=== PATIENT | female | born 1960 | race Caucasian/White ===

== ENCOUNTER 2023-05-02 06:37 | Outpatient (RCR) | payer BC, SELFPAY | END 2023-05-02 23:59 | disposition home or self-care (01) | LOC: RPT 06:37 | PROVIDERS: ATTENDING PHYSICIAN Orthopaedic Surgery Orthopaedic Trauma; PRIMARYCARE PHYSICIAN Family Medicine | DX: M89.8X1 Other specified disorders of bone, shoulder (principal) | CPT/HCPCS: 97110; 97140 ==

== ENCOUNTER 2023-05-30 15:01 | Outpatient (RCR) | payer BC, SELFPAY | END 2023-05-30 23:59 | disposition home or self-care (01) | LOC: RPT 15:01 | PROVIDERS: ATTENDING PHYSICIAN Orthopaedic Surgery Orthopaedic Trauma; PRIMARYCARE PHYSICIAN Family Medicine | DX: Z47.89 Encounter for other orthopedic aftercare (principal); M89.8X1 Other specified disorders of bone, shoulder; Z73.6 Limitation of activities due to disability; M62.81 Muscle weakness (generalized); S42.002D Fracture of unspecified part of left clavicle, subsequent encounter for fracture with routine healing; V49.9XXD Car occupant (driver) (passenger) injured in unspecified traffic accident, subsequent encounter | CPT/HCPCS: 97010; 97110; 97140 ==

== ENCOUNTER → 2024-01-09 06:43 | Outpatient (REF) | payer BC, SELFPAY | LOC: WDC 06:43 | PROVIDERS: ATTENDING PHYSICIAN Family Medicine | DX: Z12.31 Encounter for screening mammogram for malignant neoplasm of breast (principal) | CPT/HCPCS: 77063; 77067 ==

== ENCOUNTER → 2024-01-13 09:34 | Outpatient (REF) | payer BC, SELFPAY | LOC: RCS 09:34 | PROVIDERS: ATTENDING PHYSICIAN Specialist; FAMILY PHYSICIAN Family Medicine | DX: Z01.818 Encounter for other preprocedural examination (principal) | CPT/HCPCS: 93005 ==

== ENCOUNTER → 2024-01-14 10:01 | Outpatient (REF) | payer BC, SELFPAY ==
[2024-01-14 11:23] LABS: Blood Urea Nitrogen 20 mg/dl (7-17); Calcium 9.8 mg/dl (8.4-10.2); Carbon Dioxide 34 mmol/L (22-30); Chloride 96 mmol/L (98-107); Glucose 92 mg/dl (70-99); Potassium 3.6 mmol/L (3.5-5.1); Sodium 141 mmol/L (135-145); eGFR > 60.00
== END ==
LOC: REG 10:01
PROVIDERS: ATTENDING PHYSICIAN Specialist; FAMILY PHYSICIAN Family Medicine
DX: Z01.818 Encounter for other preprocedural examination (principal)
CPT/HCPCS: 36415; 80048

== ENCOUNTER 2024-09-13 10:30 | Emergency (ER) | payer BC, SELFPAY ==
[2024-09-13 10:51] VITALS: BP 124/90
[2024-09-13 11:15] LABS: % Basophils 0.6 % (0-2); % Eosinophils 2.3 % (0-6); % Immature Granulocytes 0.1 % (0-0.5); % Lymphocytes 35.9 % (20.5-51.1); % Monocytes 7.9 % (1.7-9.3); % Neutrophils 53.2 % (42.2-75.2); Absolute Eosinophils 0.2 10^3/uL (0-0.7); Absolute Lymphocytes 2.5 10^3/uL (1.2-3.4); Absolute Monocytes 0.5 10^3/uL (0.1-0.6); Absolute Neutrophils 3.6 10^3/uL (1.4-6.5); Hemoglobin 12.7 g/dL (12.0-16.0); Mean Corp Hgb Conc. 34.3 g/dL (33.0-37.0); Mean Corpuscular Hgb 28.7 pg (27.0-31.0); Mean Corpuscular Volume 83.5 fL (81.0-99.0); Mean Platelet Volume 9.1 fL (7.4-10.4); Nucleated Red Blood Cells % 0 %; Platelet Count 285 10^3/uL (130-400); Red Blood Cell Count 4.43 10^6/uL (4.20-5.40); Red Cell Dist. Width 12.6 % (11.5-14.5); White Blood Cell Count 6.9 10^3/uL (4.8-10.8)
[2024-09-13 11:27] LABS: ALT (SGPT) 11 U/L (0-35); AST (SGOT) 17 U/L (14-36); Albumin 4.3 g/dl (3.5-5.0); Alkaline Phosphatase 51 U/L (38-126); Blood Urea Nitrogen 20 mg/dl (7-17); Calcium 9.9 mg/dl (8.4-10.2); Carbon Dioxide 33 mmol/L (22-30); Chloride 99 mmol/L (98-107); Glucose 163 mg/dl (70-99); Sodium 141 mmol/L (135-145); Total Bilirubin 1.5 mg/dl (0.2-1.3); Total Protein 7.1 g/dl (6.3-8.2); eGFR > 60.00
[2024-09-13 11:36] LABS: Troponin I < 0.012 ng/ml
[2024-09-13 12:45] VITALS: BMI 27.0
[2024-09-13 12:46] VITALS: BP 130/56
[2024-09-13 13:00] VITALS: BP 115/57
--- NOTE | 2024-09-13 13:32 | ED.GENMED ---
History of Present Illness
General
Chief Complaint: Chest Pain
Source: patient
Exam Limitations: none
Time Seen by Provider: 09/13/24 13:31
History of Present Illness
History of Present Illness:
Over the past week patient has had intermittent episodes of chest tightness. Will last up to 20 minutes. Nonexertional. No shortness of breath. At times would radiate to the back. Today's episode was worse at her desk. Currently asymptomatic.
No shortness of breath nausea or diaphoresis.
Past History
Past History
ED Past Medical History: HTN and NIDDM
ED Past Surgical History: Cholecystectomy, and Gynecological
Social History
Tobacco: Non-smoker
Living: with family
Employment: Employed
Review of Systems
Review of Systems
All Other Systems: Not applicable
Constitutional: Denies fever or chills
Respiratory: Reports no symptoms
ABD/GI: Reports no symptoms
Phy Exam
Physical Exam
Physical Exam:
GENERAL: Alert and oriented in no apparent distress
EYE: Orbits normal.
NECK: Supple, no significant adenopathy.
ENT: Pharynx without erythema
CARDIAC: Regular rate and rhythm without any obvious murmurs.
LUNGS: Clear breath sounds,normal
ABDOMEN: Soft, without focal tenderness or distention
NEUROLOGICAL: Alert and oriented , grossly non-focal
SKIN: Warm and dry, no rash or lesion, no discoloration, skin intact.
MUSCULOSKELETAL: No edema,no deformity.Good color
PSYCH: Normal and appropriate interaction.
Scores
Heart Score for Chest Pain Patients
STEMI patient?: No
History: Moderately Suspicious
ECG: Normal (Nonspecific changes)
Age: >45 - <65 years
Risk Factors: 1 or 2 Risk Factors
Troponin: </= Normal Limit
Heart Score for Chest Pain Patients: 3
Heart Score Risk: 2.5% MACE over next 6 weeks
Course
Orders/Labs/Results
Orders:
Orders
09/13/24 10:32
ECG [Electrocardiogram (*1)] Urgent
Reason for Study: Chest Pain
EKG- Treatment ONCE
09/13/24 11:01
Complete Blood Count/With Diff Urgent
Comprehensive Metabolic Panel Urgent
Troponin I Urgent
09/13/24 13:41
Aspirin Chewable [Low Strength Aspirin] 324 mg PO NOW STA
09/13/24 13:42
Cardiac Monitoring- Treatment ONCE
CR Chest - 2 Views Urgent
Comment:
Reason For Exam: Intermittent chest pain
09/13/24 14:20
EKG [Electrocardiogram (*1)] Routine
Reason for Study: Chest Pain
09/13/24 14:27
Troponin I Routine
Abnormal Lab Results
09/13/24
11:01
Carbon Dioxide 33 H mmol/L
(22-30)
BUN 20 H mg/dl
(7-17)
Glucose 163 H mg/dl
(70-99)
Total Bilirubin 1.5 H mg/dl
(0.2-1.3)
09/13/24 11:01
09/13/24 11:01
Vital Signs
Initial and Last Documented VS:
Initial Vital Signs
Temp Pulse Resp BP Pulse Ox
98.2 F 72 18 124/90 100
09/13/24 10:51 09/13/24 10:51 09/13/24 10:51 09/13/24 10:51 09/13/24 10:51
Last Documented Vital Signs
Temp Pulse Resp BP Pulse Ox
98.2 F 63 14 128/68 98
09/13/24 10:51 09/13/24 14:45 09/13/24 14:45 09/13/24 14:00 09/13/24 14:45
MDM/Problems Addressed
Differential Diagnosis Includes:
Patient describing intermittent episodes of chest tightness. Slightly worse today. Moderate risk factors. Nonexertional but otherwise a very reasonable story for anginal equivalent. Will ask cardiology further evaluation.
*Pulse Oximetry
Patient hypoxic: no
*EKG
Interpreted by ED Provider?: Yes
Interpretation: abnormal
Comparison EKG: changes noted
Heart Rate: 73
Rate: normal
Rhythm: sinus
Steele: normal axis
Interval: normal interval
QRS Pattern: normal QRS
Ischemia: non-specific ST changes
*Critical Care Note
Total Time (30-74mins, 75-104mins- exclusive of procedures): Not Applicable
Data Reviewed
Review of Other/Old Records Reveals: Labs and Records
Update Note
Update Note:
Repeat EKG is stable. Cleared by cardiology for follow-up
ED Attending Note
-
Portions of this chart may have been created with voice recognition software.� Occasional wrong word or��sound alike� substitutions may have occurred due to the inherent limitations of voice recognition software.
Discharge Plan
Departure
Patient Disposition: Home (Routine Discharge)
Date of Disposition: 09/13/24
Time of Disposition: 15:38
Patient with high blood pressure during this ER visit?: Yes
Discharge Problem:
Recurrent chest pain
Instructions: Chest pain - Discharge instructions, BLOOD PRESSURE
Prescriptions:
No Action
metformin 500 mg Tablet
500 mg PO HS
lisinopril-hydrochlorothiazide 10-12.5 mg Tablet
1 tab PO DAILY
hydrocodone-acetaminophen 5-325 mg tablet
1 tab PO Q8H PRN (Reason: Pain) Qty: 10 0RF
Referrals:
Isaak Gaytan DO [Family Provider] -
Russ Larson MD [Active] -
Activity Restrictions/Additional Instructions:
Follow-up per cardiology
Interventions
Interventions:
*Risk Screen - Suicide Last Done: 09/13/24 10:51
*General Assessment Last Done: 09/13/24 10:51
*Neglect/Abuse Screening Last Done: 09/13/24 12:45
*ED- Fall Risk Assessment Last Done: 09/13/24 12:45
*ED COVID-19 Vaccine History Last Done: 09/13/24 12:45
*Nursing Disposition Last Done: 09/13/24 15:45
ED- Cardiac Assessment Last Done: 09/13/24 12:45
Discharge Date and Time
Discharge Date/Time: 09/13/24 15:46
Print Language: KITTITIAN
[2024-09-13] MEDS: LOW STRENGTH ASPIRIN 324 MG PO (13:45)
--- NOTE | 2024-09-13 13:46 | CON.CAR ---
Addendum entered and electronically signed by Russ Larson MD 09/13/24 15:42:
I saw and examined the patient.
The ELECTROLYTIC ETCHER's note was reviewed and I agree with the note.
Comment: 63 y/o female with hypertension and diabetes who is here for evaluation of chest discomfort. She had on episode of chest discomfort today at work that lasted maybe 15-20 mins and was not associated with any exertion. She does walk
throughout the week and on had walked for 45 mins without discomfort. I discussed warning signs and symptoms of ischemia. She had negative troponins for ischemia. We discussed stress testing for which she is agreeable. She knows to
return if she has more frequent episodes of chest pain. Otherwise, outpatient stress test for further eval.
Original Note:
Consultation
Consultation Request
Date/Time Consultation Requested: 09/13/24 1342
Date/Time Consultation Performed: 09/13/24 1345
Requesting Provider: Dr. Pereira
Performing Provider: May DEL REAL for Dr. Larson
Reason for Consultation: chest discomfort
Medical History
-
Chief Complaint: chest discomfort
History of Present Illness:
63 y/o female with hypertension and diabetes who is here for evaluation of chest discomfort. Briefly, over the past week she has noted intermittent chest discomfort. It is not associated with any particular activity. It is typically brief and mild.
However, this AM around 10 AM while she was sitting at work, she developed mid-sternal heaviness/pressure- which was worse than previous. It lasted about 1/2 hour. She walks for exercise. Last time she walked was , for about 45 minutes. She
had no chest discomfort with that.
Past Medical History
Past Medical History: HTN and NIDDM
Past Surgical History: Orthopedic (knee 3 years ago)
Social History
Tobacco: Non-Smoker
Family History
Family History: Reviewed & Not Pertinent
Allergies / Home Medications
Allergy/AdvReac Type Severity Reaction Status Date / Time
Penicillins Allergy Anaphylaxis Verified 11/13/22 07:27
�Medication �Instructions �Recorded �Confirmed �Type
lisinopril 10 1 tab PO DAILY 11/13/22 11/13/22 History
mg-hydrochlorothiazide 12.5 mg
tablet
metformin 500 mg tablet 500 mg PO HS 11/13/22 11/13/22 History
Review of Systems
-
History Source: Patient
All other systems: Negative unless noted
Cardiac: Chest Pain
Physical Exam
Vital Signs
Temp Pulse Resp BP Pulse Ox
98.2 F 69 14 130/56 100
09/13/24 10:51 09/13/24 12:47 09/13/24 12:47 09/13/24 12:46 09/13/24 12:47
Lab Results
09/13/24 11:01
09/13/24 11:01
Troponin I < 0.012 ng/ml 09/13/24 11:01
Physical Exam
General: Well Developed, Well Nourished and No Apparent Distress
HEENT: Normocephalic and Anicteric
Respiratory: Clear and Non Labored Respirations
Cardiac: Regular Rhythm
Musculoskeletal: No Edema
Skin: Warm and Dry
Neuro: AO x 3
Psych: Calm
Impression / Plan
-
Chest discomfort: none at present
-etiology unclear; some typical and atypical features as described
-trop normal. EKG non-specific abnormalities, no acute change to my review. Repeat EKG and trop now.
-will need ischemic evaluation- if next EKG and trop normal, this can be done as OP (nuclear stress test)- this week. If troponin abnormal, will need to be admitted for further eval.
HTN:
-stable
-on HCTZ/ACEI- continue
DM, type II:
-on metformin
Data Reviewed
-
EKG: Tracing Personally Visualized and interpreted (SR, nonspecific ST/T abnormality 73 BPM)
Labs: Labs Reviewed by me
[2024-09-13 14:00] VITALS: BP 128/68
[2024-09-13 14:59] LABS: Troponin I < 0.012 ng/ml
== END 2024-09-13 15:46 | disposition home or self-care (01) ==
LOC: EMR 10:30
PROVIDERS: Emergency Medicine; Nurse Practitioner; EMERGENCY PHYSICIAN Emergency Medicine; FAMILY PHYSICIAN Family Medicine; OTHER PHYSICIAN Internal Medicine Cardiovascular Disease
DX: R07.89 Other chest pain (principal); I10 Essential (primary) hypertension; E11.9 Type 2 diabetes mellitus without complications; Z01.810 Encounter for preprocedural cardiovascular examination; Z88.0 Allergy status to penicillin
CPT/HCPCS: 99284; 71046; 80053; 84484; 85025; 93005

== ENCOUNTER → 2024-09-15 11:59 | Outpatient (REF) | payer BC, SELFPAY | LOC: HWRCS 11:59 | PROVIDERS: ATTENDING PHYSICIAN Internal Medicine Cardiovascular Disease; FAMILY PHYSICIAN Family Medicine | DX: R07.89 Other chest pain (principal) | CPT/HCPCS: 78452; 93017; A9500; J2785 ==

== ENCOUNTER → 2024-09-29 11:13 | Outpatient (REF) | payer BC, SELFPAY | LOC: RCS 11:13 | PROVIDERS: ATTENDING PHYSICIAN Nurse Practitioner; FAMILY PHYSICIAN Family Medicine | DX: R07.89 Other chest pain (principal); I10 Essential (primary) hypertension; R00.2 Palpitations | CPT/HCPCS: 93306 ==

== ENCOUNTER → 2025-01-21 09:24 | Outpatient (REF) | payer BC, SELFPAY | LOC: RAD 09:24 | PROVIDERS: ATTENDING PHYSICIAN Family Medicine | DX: Z78.0 Asymptomatic menopausal state (principal) | CPT/HCPCS: 77080 ==

== ENCOUNTER → 2025-02-24 13:50 | Outpatient (REF) | payer BC, SELFPAY | LOC: WDC 13:50 | PROVIDERS: ATTENDING PHYSICIAN Family Medicine | DX: Z12.31 Encounter for screening mammogram for malignant neoplasm of breast (principal) | CPT/HCPCS: 77063; 77067 ==